=== PATIENT | male | born 1960 | race Caucasian/White ===

== ENCOUNTER 2025-09-11 19:47 | Emergency (ER) | payer BC, SELFPAY ==
[2025-09-11 19:48] VITALS: BP 148/84; PULSE 77; RESP 18; TEMP 36.4; O2SAT 97
[2025-09-11 19:57] VITALS: BP 148/84; PULSE 77; RESP 18; TEMP 36.4; O2SAT 97
[2025-09-11] MEDS: Tetracaine 0.5% 4 ML BTL OP (20:13)
[2025-09-11] MEDS: Fluorescein STRIPS 100/BOX 1 MG OP (20:14)
[2025-09-11] MEDS: Balanced Salt Solution 15 ML BTL OD (20:14)
[2025-09-11] MEDS: Lactated Ringers 1,000 ML 1000 ML IV (21:23)
[2025-09-11] MEDS: Erythromycin Ophth Oint 3.5 GM TUBE OD (21:59)
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
== END 2025-09-11 22:43 | disposition home or self-care (01) ==
PROVIDERS: Emergency Provider Physician Assistant; PCP Family Medicine
DX: T15.00XA Foreign body in cornea, unspecified eye, initial encounter (principal)
CPT/HCPCS: 99283 ×2